=== PATIENT | female | born 2000 | race Two or more races ===

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

== ENCOUNTER 2023-01-20 14:05 | Emergency (ER) | payer SELFPAY ==
[2023-01-20 14:36] LABS: BASOPHILS ABSOLUTE AUTO 0.1 K/uL (0.0-0.1); BASOPHILS PERCENT AUTO 0.5 % (0.0-1.5); EOSINOPHILS ABSOLUTE AUTO 0.2 K/uL (0.0-0.7); EOSINOPHILS PERCENT AUTO 1.9 % (0.0-7.0); HEMATOCRIT 42.6 % (36.0-46.0); HEMOGLOBIN 14.3 g/dL (12.0-16.0); LYMPHOCYTES ABSOLUTE AUTO 2.3 K/uL (0.6-2.4); LYMPHOCYTES PERCENT AUTO 23.7 % (16.0-40.0); MEAN CORPUSCULAR HEMOGLOBIN 32.2 pg (27.0-32.0); MEAN CORPUSCULAR HGB CONC 33.6 g/dL (31.0-37.0); MEAN CORPUSCULAR VOLUME 95.9 fL (80.0-98.0); MONOCYTES ABSOLUTE AUTO 0.7 K/uL (0.0-0.8); MONOCYTES PERCENT AUTO 7.3 % (0.0-15.0); NEUTROPHILS ABSOLUTE AUTO 6.5 K/uL (1.4-5.7); NEUTROPHILS PERCENT AUTO 66.6 % (48.0-80.0); NRBC ABSOLUTE 0 K/uL; PLATELET COUNT,PLT 390 K/uL (150-400); RED BLOOD CELL COUNT 4.44 M/uL (4.30-5.90); WHITE BLOOD CELL COUNT,WBC 9.79 K/uL (4.0-11.0)
[2023-01-20 15:12] LABS: A/G RATIO 1.1 (0.9-1.6); ALANINE AMINOTRANSFERASE,ALT 21 IU/L (14-63); ALKALINE PHOSPHATASE 99 U/L (46-116); ASPARTATE AMNIOTRANSFERASE,AST 21 IU/L (15-37); BILIRUBIN TOTAL 0.4 mg/dL (0.2-1.0); BLOOD UREA NITROGEN,BUN 12 mg/dL (7.0-18.0); CALCIUM 9.2 mg/dL (8.5-10.1); CARBON DIOXIDE,CO2 27.3 mmol/L (21.0-32.0); CHLORIDE,CL 104 mmol/L (98-107); CREATININE 0.8 mg/dL (0.6-1.0); GLUCOSE RANDOM 102 mg/dL (74-106); PROTEIN TOTAL,TP 7.6 g/dL (6.4-8.2); SODIUM,NA 139 mmol/L (136-145)
[2023-01-20 15:13] LABS: ESTIMATED GFR 108 mL/min (>60); HCG QUANTITATIVE < 1.0 mIU/mL
[2023-01-20 15:51] LABS: APPEARANCE,URINE SLT CLOUDY; BILIRUBIN,URINE NEGATIVE (NEGATIVE); GLUCOSE,URINE NEGATIVE (NEGATIVE); KETONES,URINE NEGATIVE (NEGATIVE); LEUKOCYTE ESTERASE,URINE TRACE (NEGATIVE); NITRITE,URINE NEGATIVE (NEGATIVE); OCCULT BLOOD,URINE LARGE (NEGATIVE); PH,URINE 6.5 (5.0-8.0); PROTEIN,URINE 30 mg/dL (NEGATIVE); UROBILINOGEN,URINE 0.2 EU/dL (<2.0)
[2023-01-20 15:59] LABS: COLOR,URINE PINK
[2023-01-20 16:02] LABS: BACTERIA,URINE RARE (NEGATIVE); EPITHELIAL CELLS,URINE MODERATE (NONE-FEW); MUCUS,URINE LIGHT (NONE-MOD); RBC,URINE TOO NUMEROUS TO CT (0-2/HPF)
[2023-01-20] MEDS ORDERED: Ketorolac 30 MG/ML SDV IM ONE (18:08)
== END 2023-01-20 18:58 | disposition home or self-care (01) ==
LOC: MW.ED 14:05
DX: O03.9 Complete or unspecified spontaneous abortion without complication (principal)
CPT/HCPCS: 36415; 76830; 80053; 81001; 81025; 84702; 85025; 86900; 86901; 87086; 96372; 99284; J1885; 99283

== ENCOUNTER 2024-05-21 13:41 | Emergency (ER) | payer SELFPAY ==
[2024-05-21 17:18] LABS: BILIRUBIN,URINE NEGATIVE (NEGATIVE); COLOR,URINE YELLOW; GLUCOSE,URINE NEGATIVE (NEGATIVE); KETONES,URINE NEGATIVE (NEGATIVE); LEUKOCYTE ESTERASE,URINE NEGATIVE (NEGATIVE); NITRITE,URINE NEGATIVE (NEGATIVE); OCCULT BLOOD,URINE MODERATE (NEGATIVE); PROTEIN,URINE NEGATIVE (NEGATIVE)
[2024-05-21 17:19] LABS: CANDIDA DNA PROBE NEGATIVE (NEGATIVE); GARDNERELLA DNA PROBE POSITIVE (NEGATIVE); TRICHOMONAS DNA PROBE NEGATIVE (NEGATIVE)
[2024-05-21 17:25] LABS: APPEARANCE,URINE HAZY
[2024-05-21 17:28] LABS: BACTERIA,URINE FEW (NEGATIVE); EPITHELIAL CELLS,URINE OCCASIONAL (NONE-FEW); WBC,URINE 0-3 (0-5/HPF)
[2024-05-21 18:06] LABS: C. TRACHOMATIS BY PCR NOT DETECTED; N. GONORRHOEAE BY PCR NOT DETECTED
== END 2024-05-21 18:49 | disposition home or self-care (01) ==
LOC: MW.ED 13:41
DX: N76.0 Acute vaginitis (principal); Z75.8 Other problems related to medical facilities and other health care
CPT/HCPCS: 76830; 76830-26; 81001; 81025; 87480; 87491; 87510; 87591; 87660; 99284